=== PATIENT | male | born 1975 | race African-American/Black ===

== ENCOUNTER 2019-07-30 09:09 | Emergency (ER) | payer MEDICAID, OTHER ==
[~2019-07-30] VITALS: Ht 180.3 cm; Wt 104.3 kg
[~2019-07-30 09:09] MED LIST: QUETIAPINE FUMA25 MG ORAL
[2019-07-30 09:26] VITALS: BP 123/80
--- NOTE | 2019-07-30 09:39 | Emergency Room Report ---
History of Present Illness General Chief Complaint: Behavioral Complaint Source: Patient Present Illness HPI Patient presents with reports of " wanting to end his life" Patient reports that he is a paranoid schizophrenic Usually takes seroquel however has been off the medications for the past 3 days Patient cannot give me specific plan However he does report hearing voices as well Denies any other medical complaints denies any chest pain or shortness of breath denies any neck pain or photophobia Allergies: Coded Allergies: No Known Allergies (Unverified , 07/11/16) Patient History Past Medical History: see triage record Reviewed Nursing Documentation: PMH: Agreed; PSxH: Agreed Nursing Documentation-PMH Past Medical History: No History, Except For Hx Hypertension: Yes Hx Diabetes: Yes History Of Psychiatric Problem: Yes - paranoid schizophrenia, bipolar Review of Systems All Other Systems: negative except mentioned in HPI Physical Exam Vital Signs Date Time Temp Pulse Resp B/P (MAP) Pulse Ox O2 Delivery O2 Flow Rate FiO2 07/30/19 09:16 98.2 88 20 113/79 (90) 99 Room Air Sp02 EP Interpretation: reviewed, normal General Appearance: no apparent distress - However mildly agitated Head: normocephalic, atraumatic Eyes: bilateral eye PERRL, bilateral eye EOMI ENT: hearing grossly normal, normal pharynx, TMs + canals normal, uvula midline Neck: full range of motion, supple, no meningismus, no bony tend Respiratory: lungs clear, normal breath sounds, no rhonchi, no respiratory distress, no retraction, no accessory muscle use Cardiovascular #1: normal peripheral pulses, regular rate, rhythm, no edema, no gallop, no JVD, no murmur Gastrointestinal: normal bowel sounds, non tender, soft, no mass, no organomegaly, non-distended, no guarding, no hernia, no pulsatile mass, no rebound Genitourinary: no CVA tenderness Musculoskeletal: normal inspection Neurologic: oriented x3, responsive, photo finish photographer III-XII nml as tested, motor strength/ tone normal, sensory intact Psychiatric: anxious Skin: no rash Lymphatic: normal inspection, no adenopathy Medical Decision Making Diagnostic Impression: Primary Impression: Suicidal ideation Additional Impression: Behavioral change ER Course Given the patient's history and presentation extensive blood work was initiated to further medically clear the patient All within normal limits patient continues to rest well was given initial dose of Seroquel On repeat evaluation patient again continues to do well does not really or report any active specific actions of suicidal ideation however still reports auditory hallucinations and is further medically cleared for psychiatric care Labs Test 07/30/19 09:18 07/30/19 12:05 White Blood Count 7.1 K/UL (4.8-10.8) Red Blood Count 5.46 M/UL (4.70-6.10) Hemoglobin 14.9 G/DL (14.2-18.0) Hematocrit 46.8 % (42.0-52.0) Mean Corpuscular Volume 86 FL (80-99) Mean Corpuscular Hemoglobin 27.2 PG (27.0-31.0) Mean Corpuscular Hemoglobin Concent 31.7 G/DL (32.0-36.0) Red Cell Distribution Width 13.3 % (11.6-14.8) Platelet Count 395 K/UL (150-450) Mean Platelet Volume 6.1 FL (6.5-10.1) Neutrophils (%) (Auto) 47.4 % (45.0-75.0) Lymphocytes (%) (Auto) 38.1 % (20.0-45.0) Monocytes (%) (Auto) 8.4 % (1.0-10.0) Eosinophils (%) (Auto) 4.4 % (0.0-3.0) Basophils (%) (Auto) 1.7 % (0.0-2.0) Sodium Level 139 MMOL/L (136-145) Potassium Level 3.4 MMOL/L (3.5-5.1) Chloride Level 103 MMOL/L (98-107) Carbon Dioxide Level 26 MMOL/L (21-32) Anion Gap 10 mmol/L (5-15) Blood Urea Nitrogen 21 mg/dL (7-18) Creatinine 1.4 MG/DL (0.55-1.30) Estimat Glomerular Filtration Rate > 60 mL/min (>60) Glucose Level 66 MG/DL (74-106) Calcium Level 8.8 MG/DL (8.5-10.1) Total Bilirubin 0.3 MG/DL (0.2-1.0) Aspartate Amino Transf (AST/SGOT) 13 U/L (15-37) Alanine Aminotransferase (ALT/SGPT) 19 U/L (12-78) Alkaline Phosphatase 55 U/L (46-116) Total Protein 7.8 G/DL (6.4-8.2) Albumin 3.7 G/DL (3.4-5.0) Globulin 4.1 g/dL Albumin/Globulin Ratio 0.9 (1.0-2.7) Salicylates Level 2.6 ug/mL (2.8-20) Acetaminophen Level < 2 MCG/ML (10-30) Serum Alcohol < 3 mg/dL Urine Opiates Screen Negative (NEGATIVE) Urine Barbiturates Screen Negative (NEGATIVE) Phencyclidine (PCP) Screen Negative (NEGATIVE) Urine Amphetamines Screen Positive (NEGATIVE) Urine Benzodiazepines Screen Negative (NEGATIVE) Urine Cocaine Screen Negative (NEGATIVE) Urine Marijuana (THC) Screen Negative (NEGATIVE) Last Vital Signs Date Time Temp Pulse Resp B/P (MAP) Pulse Ox O2 Delivery O2 Flow Rate FiO2 07/30/19 09:16 98.2 88 20 113/79 (90) 99 Room Air Status: improved Disposition: XFER TO PSYCH HOSP/UNIT Condition: Improved Quoc Patterson DO Jul 30, 2019 09:39
[2019-07-30] MEDS ORDERED: QUEtiapine 200mg tab ORAL ONE (09:45)
[2019-07-30 10:01] LABS: BASOPHILS % (AUTO) 1.7 % (0.0-2.0); EOSINOPHILS % (AUTO) 4.4 % (0.0-3.0); HEMATOCRIT 46.8 % (42.0-52.0); HEMOGLOBIN 14.9 G/DL (14.2-18.0); LYMPHOCYTES % (AUTO) 38.1 % (20.0-45.0); MEAN CORPUSCULAR VOLUME 86 FL (80-99); MONOCYTES % (AUTO) 8.4 % (1.0-10.0); NEUTROPHILS % (AUTO) 47.4 % (45.0-75.0); PLATELET COUNT 395 K/UL (150-450); RED BLOOD COUNT 5.46 M/UL (4.70-6.10); RED CELL DISTRIBUTION WIDTH 13.3 % (11.6-14.8); WHITE BLOOD COUNT 7.1 K/UL (4.8-10.8)
[2019-07-30 10:09] LABS: ANION GAP 10 mmol/L (5-15); BLOOD UREA NITROGEN 21 mg/dL (7-18); CALCIUM 8.8 MG/DL (8.5-10.1); CARBON DIOXIDE 26 MMOL/L (21-32); CHLORIDE 103 MMOL/L (98-107); CREATININE 1.4 MG/DL (0.55-1.30); POTASSIUM 3.4 MMOL/L (3.5-5.1); SODIUM 139 MMOL/L (136-145)
[2019-07-30 10:14] LABS: ALANINE AMINOTRANSFERASE 19 U/L (12-78); ALBUMIN 3.7 G/DL (3.4-5.0); ALBUMIN/GLOBULIN RATIO 0.9 (1.0-2.7); ALKALINE PHOSPHATASE 55 U/L (46-116); ASPARTATE AMINO TRANSFERASE 13 U/L (15-37); BILIRUBIN,TOTAL 0.3 MG/DL (0.2-1.0)
[2019-07-30 11:35] VITALS: BP 118/77
[2019-07-30 13:33] VITALS: BP 125/76
[2019-07-30 16:00] VITALS: BP 134/80
[2019-07-30 18:31] VITALS: BP 131/75
[2019-07-31] VITALS (9 sets, daily range): BP systolic 116–144; BP diastolic 66–83
[2019-07-31] MEDS ORDERED: QUEtiapine 200mg tab ORAL ONE (18:30)
[2019-08-01 02:00] VITALS: BP 110/63
[2019-08-01 05:53] VITALS: BP 129/88
[2019-08-01 07:10] VITALS: BP 118/72
[2019-08-01] MEDS ORDERED: Haloperidol Decanoate (Long Acting) 50mg Inj IM ONE (11:15)
[2019-08-01] MEDS ORDERED: LORazepam 1mg tab ONE (11:27)
[2019-08-01] MEDS ORDERED: LORazepam 1mg tab ORAL ONE (11:30)
[2019-08-01 12:09] VITALS: BP 121/76
[2019-08-01 12:14] VITALS: BP 121/76
--- NOTE | 2019-08-02 03:15 | Consultation ---
DATE OF CONSULTATION: 08/01/2019 This is a 43-year-old male with a history of methamphetamine abuse and schizophrenia who came to the emergency room at [facility] on 07/30/2019 expressing suicidal ideation. The patient was evaluated today morning. The patient is denying any suicidal thoughts and wants to be discharged. The patient stated that his main issue is financial and residential issues. The patient is not endorsing suicidal ideation however he is endorsing persecutory delusions and responding to internal stimuli. The patient agreed to Haldol Decanoate IM shot. In the emergency room, he has not been given any anxiolytics, only Seroquel 200 mg. The emergency admission has been attempted to place the patient in a psychiatric unit however they have not been successful. The patient is not on a 5150. He is in the emergency room on voluntary status and would like to be discharged. PAST PSYCHIATRIC HISTORY: Mental Health Unit. He is taking Seroquel and Depakote. He has been noncompliant with his medications. He stated that he did not have any suicide attempt in the past. PAST MEDICAL HISTORY: Nonsignificant. ALLERGIES: No known drug allergies. SUBSTANCE ABUSE HISTORY: Significant for methamphetamine and weed, occasionally alcohol. MENTAL STATUS EXAMINATION: The patient is alert, oriented times self, place, date and situation. He was cooperative with the medication. At times he was yelling and was loud. His mood was angry. Affect was blunted. Congruent with mood and appropriate. Thought process was concrete. Thought content, no suicidal, homicidal ideation. Positive for persecutory delusions. Memory, concentration, and attention was fair. Insight and judgment was fair. ASSESSMENT: Hewitt I Methamphetamine abuse. Schizophrenia by history Hewitt II Deferred. Hewitt III None. Hewitt IV Moderate Hewitt V 50 PLAN: 1. The patient was given Haldol Decanoate 100 mg x1 time. 2. He will be referred to psychiatric outpatient program. 3. The patient is not an imminent danger to self or others and is not meeting the criteria for 5150 or inpatient psychiatric care. Hong Brandon M.D. DR: Tom JOB#: [id number] CC: HANNY
== END 2019-08-01 12:14 | disposition home or self-care (01) ==
LOC: EMR 09:20
DX: F15.10 Other stimulant abuse, uncomplicated (principal); F20.0 Paranoid schizophrenia; R45.851 Suicidal ideations; F91.9 Conduct disorder, unspecified; I10 Essential (primary) hypertension; E11.9 Type 2 diabetes mellitus without complications; F12.10 Cannabis abuse, uncomplicated; Z59.0 Homelessness
CPT/HCPCS: 36415; 80053; 80196; 80307; 80329; 85025; J1631; Z7502; 99285

== ENCOUNTER 2020-06-01 10:29 | Emergency (ER) | payer MEDICAID | END 2020-06-01 11:30 | disposition home or self-care (01) | DX: J06.9 Acute upper respiratory infection, unspecified (principal); F15.10 Other stimulant abuse, uncomplicated; F20.9 Schizophrenia, unspecified; F31.9 Bipolar disorder, unspecified; E11.9 Type 2 diabetes mellitus without complications; I10 Essential (primary) hypertension; Z59.0 Homelessness | CPT/HCPCS: 71045; 93005; Z7502 ==

== ENCOUNTER 2020-07-02 08:52 | Emergency (ER) | payer MEDICAID ==
[~2020-07-02] VITALS: Ht 172.7 cm; Wt 77.1 kg
--- NOTE | 2020-07-02 08:57 | NUR ---
ED Nurse Note: Pt ambulated to ED c/o "heart pain" x 3 days. pt reports pain travels from both left and right side of chest. pt reports having headaches and blurry vision.
--- NOTE | 2020-07-02 09:00 | NUR ---
ED Nurse Note: Pt reports he took meth approximately 10-15 minutes prior to arrival, pt calm and cooperative, pt denies SI. pt placed in gown.
[2020-07-02 09:05] VITALS: BP 121/86
--- NOTE | 2020-07-02 09:09 | Emergency Room Report ---
History of Present Illness General Chief Complaint: Chest Pain Source: Patient Present Illness HPI Patient is a 44-year-old male past medical history of psych disorder and drug abuse who presents to the ER complaining of chest pain. Patient states that the chest pain started last night after smoking a cigarette and got worse today approximately 20 minutes ago after using crystal meth. Patient complains of associated shortness of breath. He states he feels palpitations. He states he feels anxious. He denies any fever or chills. He denies any cough. He denies any abdominal pain nausea or vomiting. He denies any history of heart disease. He states that when he uses drugs and smokes cigarettes he has had the symptoms in the past. 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 COVID-19 Screening: Negative COVID-19 COVID-19 Testing Source: SALESPERSON WIGS Patient History Reviewed Nursing Documentation: PMH: Agreed; PSxH: Agreed Nursing Documentation-PMH Past Medical History: No History, Except For Hx Hypertension: No Hx Pacemaker: No Hx Asthma: No Hx COPD: No Hx Diabetes: No Hx Cancer: No Hx Gastrointestinal Problems: No Hx Dialysis: No History Of Psychiatric Problem: Yes - Schizophrenia Hx Neurological Problems: No Hx Cerebrovascular Accident: No Hx Seizures: No Review of Systems All Other Systems: negative except mentioned in HPI Physical Exam Vital Signs Date Time Temp Pulse Resp B/P (MAP) Pulse Ox O2 Delivery O2 Flow Rate FiO2 07/02/20 09:03 98.2 85 14 120/79 (93) 99 Room Air Sp02 EP Interpretation: reviewed, normal General Appearance: no apparent distress, alert, GCS 15, non-toxic, other - Poorly groomed Head: normocephalic, atraumatic Eyes: bilateral eye normal inspection, bilateral eye PERRL ENT: hearing grossly normal, normal pharynx, no angioedema, normal voice Neck: full range of motion, supple/symm/no masses Respiratory: chest non-tender, lungs clear, normal breath sounds, speaking full sentences Cardiovascular #1: regular rate, rhythm, no edema Gastrointestinal: normal bowel sounds, non tender, soft, non-distended, no guarding, no rebound Rectal: deferred Musculoskeletal: normal range of motion, no calf tenderness Neurologic: tour counselor III-XII nml as tested Psychiatric: no suicidal/homicidal ideation, anxious Skin: no rash Lymphatic: no adenopathy Medical Decision Making Diagnostic Impression: Primary Impression: Chest pain Additional Impression: Drug abuse ER Course Patient's vital signs have been stable. Patient given oral aspirin as well as 1 L of IV fluids. Patient's CK is 500 with normal creatinine. Patient counseled on the dangers of drug abuse. I suspect the chest pain the patient is presenting with is atypical in nature. Aortic dissection was considered but in the physical exam the patient has equal pulses in all extremities, no new focal neurological deficits, no apparent diastolic murmur on the cardiac exam, and no widening of the mediastinum on CXR. Pulmonary embolism was also considered however I believe patient to be low risk given normal heart rate, no evidence of hypoxemia, no significant unilateral leg swelling, no recent travel , no history of cancer, no right axis deviation on EKG, and no recent surgery. I also doubt that this is acute coronary syndrome since EKG shows no STEMI, troponin is normal x 1 and chest pain has been present since last night, and the patients chest pain has resolved. The patient was counseled that, though unlikely, the possibility of an emergent cause of chest pain may still be present and that the patient should return immediately if symptoms persists or worsen. I believe the patient is stable for discharge to follow-up with their PMD. Laboratory Tests Test 07/02/20 09:00 07/02/20 09:07 Urine Opiates Screen Pending Urine Barbiturates Screen Pending Phencyclidine (PCP) Screen Pending Urine Amphetamines Screen Pending Urine Benzodiazepines Screen Pending Urine Cocaine Screen Pending Urine Marijuana (THC) Screen Pending White Blood Count 5.1 K/UL (4.8-10.8) Red Blood Count 5.06 M/UL (4.70-6.10) Hemoglobin 13.7 G/DL (14.2-18.0) L Hematocrit 43.5 % (42.0-52.0) Mean Corpuscular Volume 86 FL (80-99) Mean Corpuscular Hemoglobin 27.1 PG (27.0-31.0) Mean Corpuscular Hemoglobin Concent 31.5 G/DL (32.0-36.0) L Red Cell Distribution Width 13.6 % (11.6-14.8) Platelet Count 322 K/UL (150-450) Mean Platelet Volume 7.0 FL (6.5-10.1) Neutrophils (%) (Auto) 40.9 % (45.0-75.0) L Lymphocytes (%) (Auto) 46.2 % (20.0-45.0) H Monocytes (%) (Auto) 8.7 % (1.0-10.0) Eosinophils (%) (Auto) 1.9 % (0.0-3.0) Basophils (%) (Auto) 2.4 % (0.0-2.0) H D-Dimer < 0.19 mg/L FEU Sodium Level 139 MMOL/L (136-145) Potassium Level 3.7 MMOL/L (3.5-5.1) Chloride Level 105 MMOL/L (98-107) Carbon Dioxide Level 29 MMOL/L (21-32) Anion Gap 5 mmol/L (5-15) Blood Urea Nitrogen 15 mg/dL (7-18) Creatinine 1.4 MG/DL (0.55-1.30) H Estimated Glomerular Filtration Rate > 60 mL/min (>60) Glucose Level 98 MG/DL (74-106) Calcium Level 9.0 MG/DL (8.5-10.1) Magnesium Level 2.2 MG/DL (1.8-2.4) Total Bilirubin 0.4 MG/DL (0.2-1.0) Aspartate Amino Transferase (AST) 24 U/L (15-37) Alanine Aminotransferase (ALT) 27 U/L (12-78) Alkaline Phosphatase 33 U/L (46-116) L Total Creatine Kinase 533 U/L (26-308) H Troponin I 0.000 ng/mL (0.000-0.056) Pro-B-Type Natriuretic Peptide 49 pg/mL (0-125) Total Protein 7.2 G/DL (6.4-8.2) Albumin 3.7 G/DL (3.4-5.0) Globulin 3.5 g/dL Albumin/Globulin Ratio 1.1 (1.0-2.7) EKG Diagnostic Results EKG Time: 09:10 EP Interpretation: Shu Cullen MD Rate: normal - 77 bpm Rhythm: NSR ST Segments: no acute changes ASA given to the pt in ED: Yes Chest X-Ray Diagnostic Results Chest X-Ray Diagnostic Results : Chest X-Ray Ordered: Yes # of Views/Limited/Complete: 1 View Indication: Chest Pain EP Interpretation: Yes Interpretation: no consolidation, no effusion, no pneumothorax, no acute cardiopulmonary disease Impression: No acute disease Electronically Signed by: Shu Cullen MD Last Vital Signs Date Time Temp Pulse Resp B/P (MAP) Pulse Ox O2 Delivery O2 Flow Rate FiO2 07/02/20 09:03 98.2 85 14 120/79 (93) 99 Room Air Disposition: HOME, SELF-CARE Condition: Stable Scripts Aspirin* (ASPIR 81*) 81 Mg Tablet. 81 MG ORAL DAILY for 30 Days, TAB Prov: Shu Cullen M.D. 07/02/20 Additional Instructions: The patient was provided with discharge instructions, notified to follow-up with a primary care doctor and or specialist in the next 24-48 hours, and to return to the ED if they have worsening of their symptoms. Please note that this report is being documented using Instant AV technology. This can lead to erroneous entry secondary to incorrect interpretation by the dictating instrument. Shu Cullen M.D. Jul 02, 2020 09:09
[2020-07-02] MEDS ORDERED: Aspirin Baby 81mg ORAL ONE (09:15)
[2020-07-02] MEDS ORDERED: LORazepam 1mg tab ORAL ONE (09:15)
[2020-07-02 09:24] LABS: BASOPHILS % (AUTO) 2.4 % (0.0-2.0); EOSINOPHILS % (AUTO) 1.9 % (0.0-3.0); HEMATOCRIT 43.5 % (42.0-52.0); HEMOGLOBIN 13.7 G/DL (14.2-18.0); LYMPHOCYTES % (AUTO) 46.2 % (20.0-45.0); MEAN CORPUSCULAR VOLUME 86 FL (80-99); MONOCYTES % (AUTO) 8.7 % (1.0-10.0); NEUTROPHILS % (AUTO) 40.9 % (45.0-75.0); PLATELET COUNT 322 K/UL (150-450); RED BLOOD COUNT 5.06 M/UL (4.70-6.10); RED CELL DISTRIBUTION WIDTH 13.6 % (11.6-14.8); WHITE BLOOD COUNT 5.1 K/UL (4.8-10.8)
--- NOTE | 2020-07-02 09:33 | NUR ---
ED Nurse Note: Xray at bedside
[2020-07-02 09:46] LABS: ANION GAP 5 mmol/L (5-15); BLOOD UREA NITROGEN 15 mg/dL (7-18); CARBON DIOXIDE 29 MMOL/L (21-32); CHLORIDE 105 MMOL/L (98-107); CREATININE 1.4 MG/DL (0.55-1.30); POTASSIUM 3.7 MMOL/L (3.5-5.1); SODIUM 139 MMOL/L (136-145)
[2020-07-02 09:56] LABS: ALANINE AMINOTRANSFERASE 27 U/L (12-78); ALBUMIN 3.7 G/DL (3.4-5.0); ALBUMIN/GLOBULIN RATIO 1.1 (1.0-2.7); ALKALINE PHOSPHATASE 33 U/L (46-116); ASPARTATE AMINO TRANSFERASE 24 U/L (15-37); BILIRUBIN,TOTAL 0.4 MG/DL (0.2-1.0); CREATINE KINASE 533 U/L (26-308)
[2020-07-02] MEDS ORDERED: ASPIR 8181 MG ORAL (09:59)
[2020-07-02 10:00] VITALS: BP 117/74
--- NOTE | 2020-07-02 10:00 | NUR ---
ER DISCHARGE NOTE: Patient is cleared to be discharged per ERMD, pt is aox4, on room air, with stable vital signs. pt was given dc and prescription instructions, pt was able to verbalize understanding, pt id band and iv site removed without complications. pt is able to ambulate with steady gait. pt took all belongings.
--- NOTE | 2020-07-02 10:01 | NUR ---
ED Nurse Note: Pt given homeless long term referral forms, meal, and shirt
--- NOTE | 2020-07-02 15:46 | Diagnostic Imaging Report ---
Indication: Chest pain Technique: One view of the chest Comparison: none Findings: Lungs and pleural spaces are clear. Heart size is normal. No significant change Impression: No acute process
== END 2020-07-02 10:00 | disposition home or self-care (01) ==
LOC: EMR 09:05
DX: R07.9 Chest pain, unspecified (principal); F15.10 Other stimulant abuse, uncomplicated; F20.9 Schizophrenia, unspecified
CPT/HCPCS: 36415; 71045; 80053; 80307; 82550; 83735; 83880; 84484; 85025; 85379; 93005; 96360; J7030; Z7502; 99284

== ENCOUNTER 2020-07-03 09:10 | Emergency (ER) | payer MEDICAID ==
[~2020-07-03] VITALS: Ht 180.3 cm; Wt 78.0 kg
[~2020-07-03 09:10] MED LIST changes: +ASPIR 8181 MG ORAL
--- NOTE | 2020-07-03 09:30 | NUR ---
ED Nurse Note: Pt walked in from the streets d/t n/v since eating a sandwich yesterday. Pt was seen @ [facility] yesterday for CP and discharged. Respirations even and unlabored on room air. Vitals stable as documented. A+Ox4.
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
--- NOTE | 2020-07-03 09:40 | NUR ---
ED Nurse Note: Pt denies IV, but will allow us to draw blood. Pt told ED MD that he was having suicidal thoughts. When asked by RN, pt denies method or plan to commit suicide. Pt is calm. Denies HI. Environment made safe for patient.
[2020-07-03 09:58] LABS: BASOPHILS % (AUTO) 2.2 % (0.0-2.0); EOSINOPHILS % (AUTO) 2.3 % (0.0-3.0); HEMATOCRIT 41.1 % (42.0-52.0); HEMOGLOBIN 13.2 G/DL (14.2-18.0); LYMPHOCYTES % (AUTO) 54.2 % (20.0-45.0); MEAN CORPUSCULAR VOLUME 85 FL (80-99); MONOCYTES % (AUTO) 3.8 % (1.0-10.0); NEUTROPHILS % (AUTO) 37.4 % (45.0-75.0); PLATELET COUNT 332 K/UL (150-450); RED BLOOD COUNT 4.82 M/UL (4.70-6.10); RED CELL DISTRIBUTION WIDTH 13.4 % (11.6-14.8); WHITE BLOOD COUNT 4.7 K/UL (4.8-10.8)
--- NOTE | 2020-07-03 10:02 | NUR ---
ED Nurse Note: pt aware of need for urine sample
[2020-07-03 10:10] VITALS: BP 112/84
[2020-07-03 10:12] LABS: ANION GAP 9 mmol/L (5-15); BLOOD UREA NITROGEN 12 mg/dL (7-18); CARBON DIOXIDE 24 MMOL/L (21-32); CHLORIDE 104 MMOL/L (98-107); CREATININE 1.3 MG/DL (0.55-1.30); POTASSIUM 3.5 MMOL/L (3.5-5.1); SODIUM 137 MMOL/L (136-145)
[2020-07-03 10:16] LABS: ALANINE AMINOTRANSFERASE 24 U/L (12-78); ALBUMIN 3.5 G/DL (3.4-5.0); ALBUMIN/GLOBULIN RATIO 1.1 (1.0-2.7); ALKALINE PHOSPHATASE 31 U/L (46-116); ASPARTATE AMINO TRANSFERASE 19 U/L (15-37); BILIRUBIN,TOTAL 0.4 MG/DL (0.2-1.0)
--- NOTE | 2020-07-03 10:23 | NUR ---
ED Nurse Note: juice and sandwich provided for patient.
--- NOTE | 2020-07-03 11:01 | NUR ---
ED Nurse Note: covid swab sent to lab
--- NOTE | 2020-07-03 11:36 | NUR ---
ED Nurse Note: urine sent to lab
[2020-07-03 11:43] LABS: APPEARANCE,URINE SLIGHTLY CLOUDY; BILIRUBIN, URINE NEGATIVE (NEGATIVE); GLUCOSE, URINE (UA) NEGATIVE (NEGATIVE); KETONES,URINE NEGATIVE (NEGATIVE); LEUKOCYTE ESTERASE ,URINE NEGATIVE (NEGATIVE); NITRITE,URINE NEGATIVE (NEGATIVE); PH,URINE 6 (4.5-8.0); PROTEIN,URINE NEGATIVE (NEGATIVE); UROBILINOGEN,URINE 1 MG/DL (0.0-1.0)
[2020-07-03 11:46] LABS: COLOR,URINE YELLOW
[2020-07-03 12:05] VITALS: BP 121/79
[2020-07-03 14:15] VITALS: BP 125/84
--- NOTE | 2020-07-03 16:53 | NUR ---
ED Nurse Note: Report given to [place] @ [facility]
[2020-07-03 17:00] VITALS: BP 104/79
--- NOTE | 2020-07-03 19:12 | NUR ---
ED Nurse Note: [facility] @ bedside. Report given.
[2020-07-03 19:15] VITALS: BP 99/60
== END 2020-07-03 19:15 ==
LOC: EMR 09:28
DX: R45.851 Suicidal ideations (principal); F15.10 Other stimulant abuse, uncomplicated; R10.9 Unspecified abdominal pain; F32.9 Major depressive disorder, single episode, unspecified
CPT/HCPCS: 36415; 80053; 80307; 81003; 83690; 84484; 85025; 93005; G0480; G0481; U0002; Z7502; 99284